=== PATIENT | female | born 1980 | race Hispanic/Latino ===

== ENCOUNTER 2020-06-08 16:32 | Emergency (ER) | payer SELFPAY ==
[2020-06-08 17:49] LABS: Urine Blood 2+ (NEG); Urine Glucose 1+ (NEG); Urine Protein 2+ (NEG); Urine Specific Gravity 1.025 (1.005-1.030)
[2020-06-08 17:58] LABS: Urine Bacteria >50 /HPF (<20); Urine Culture Reflex Order REFLEXED
[2020-06-08 18:08] LABS: Absolute Lymphocytes (CBC) 0.6 K/uL (0.7-4.9); Basophils % 0.4 % (0-1.3); Hematocrit 38.3 % (36.0-45.0); Lymphocytes % 5.8 % (15.3-44.8); MPV 8.2 fL (7.6-11.3); RBC Red Blood Cell Count 4.31 M/uL (3.86-4.86)
[2020-06-08] MEDS ORDERED: MORPHINE 4 MG/ML SYR ONE (18:11)
[2020-06-08] MEDS ORDERED: ONDANSETRON 4 MG/2 ML VIAL ONE (18:12)
[2020-06-08] MEDS ORDERED: NA CHLORIDE 0.9% 1,000 ML ONE (18:12)
[2020-06-08 18:18] LABS: Potassium 3.6 mmol/L (3.5-5.1)
[2020-06-08] MEDS ORDERED: CIPROFLOXACIN HCL 500 MG TAB ONE (18:20)
[2020-06-08 18:36] LABS: Blood Morphology Comment NOT SEEN (NOT SEEN); Platelet Estimate ADEQ; White Blood Cell Scan OK (OK)
--- NOTE | 2020-06-08 18:37 | EDPHYS ---
Physician Documentation [facility] Name: Sarah Powell Age: 39 yrs Sex: Female : 1980 Arrival Date: 06/08/2020 Time: 16:36 Bed 20 Private MD: ED Physician Pierre Romero HPI: 06/08 18:02 This 39 yrs old Female presents to ER via Ambulatory with complaints of Back kb Pain, Pain With Urination. 18:02 The patient presents with urinary symptoms, dysuria. Onset: The symptoms/episode kb began/occurred 1 week(s) ago. Modifying factors: The symptoms are alleviated by nothing, the symptoms are aggravated by urinating. Associated signs and symptoms: Pertinent positives: dysuria, fever. Severity of symptoms: At their worst the symptoms were moderate, in the emergency department the symptoms are unchanged. The patient has not experienced similar symptoms in the past. The patient has not recently seen a physician. Pt reports dysuria for one week. Fever, chills and right flank pain started a few days ago, worse today. 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 - Social history:: Smoking status: Patient denies any tobacco usage or history of. ROS: 18:01 Cardiovascular: Negative for chest pain, palpitations, and edema, Respiratory: Negative kb for shortness of breath, cough, wheezing, and pleuritic chest pain, Abdomen/GI: Negative for abdominal pain, nausea, vomiting, diarrhea, and constipation, MS/Extremity: Negative for injury and deformity, Skin: Negative for injury, rash, and discoloration, Neuro: Negative for headache, weakness, numbness, tingling, and seizure. 18:01 : Positive for flank pain, burning with urination. 18:02 Constitutional: Positive for chills, fever. kb Exam: 18:01 Constitutional: This is a well developed, well nourished patient who is awake, alert, kb and in no acute distress. Head/Face: Normocephalic, atraumatic. Chest/axilla: Normal chest wall appearance and motion. Nontender with no deformity. No lesions are appreciated. Cardiovascular: Regular rate and rhythm with a normal S1 and S2. No gallops, murmurs, or rubs. Normal PMI, no JVD. No pulse deficits. Respiratory: Lungs have equal breath sounds bilaterally, clear to auscultation and percussion. No rales, rhonchi or wheezes noted. No increased work of breathing, no retractions or nasal flaring. Abdomen/GI: Soft, non-tender, with normal bowel sounds. No distension or tympany. No guarding or rebound. No evidence of tenderness throughout. Skin: Warm, dry with normal turgor. Normal color with no rashes, no lesions, and no evidence of cellulitis. MS/ Extremity: Pulses equal, no cyanosis. Neurovascular intact. Full, normal range of motion. Neuro: Awake and alert, GCS 15, oriented to person, place, time, and situation. Cranial nerves II-XII grossly intact. Motor strength 5/5 in all extremities. Sensory grossly intact. Cerebellar exam normal. Normal gait. 18:01 Back: pain, that is moderate, of the right low back, ROM is normal, normal spinal alignment noted. Vital Signs: 16:48 BP 159 / 74; Pulse 122; Resp 18; Temp 98.6(O); Pulse Ox 100% ; Weight 104.33 kg; Height ll1 5 ft. 7 in. (170.18 cm); Pain 9/10; 18:47 BP 143 / 75; Pulse 103; Resp 18; Pulse Ox 98% on R/A; jd3 19:27 BP 133 / 61; Pulse 95; Resp 17 S; Temp 98.6(O); Pulse Ox 99% on R/A; jd3 16:48 Body Mass Index 36.02 (104.33 kg, 170.18 cm) ll1 MDM: 17:25 Patient medically screened. kb 18:01 Data reviewed: vital signs, nurses notes. Data interpreted: Pulse oximetry: on room air kb is 100 %. Interpretation: normal. 18:24 Counseling: I had a detailed discussion with the patient and/or guardian regarding: the kb historical points, exam findings, and any diagnostic results supporting the discharge/admit diagnosis, lab results, the need for outpatient follow up, a family practitioner, to return to the emergency department if symptoms worsen or persist or if there are any questions or concerns that arise at home. 06/08 16:38 Order name: Urine Microscopic Only; Complete Time: 18:00 kb 06/08 17:41 Order name: CBC with Diff; Complete Time: 18:37 kb 06/08 17:41 Order name: Basic Metabolic Panel; Complete Time: 18:22 kb 06/08 17:44 Order name: Urine Dipstick--Ancillary (enter results); Complete Time: 17:52 eb 06/08 17:44 Order name: Urine --Ancillary (enter results); Complete Time: 17:52 eb 06/08 17:59 Order name: Urine Culture EDMS 06/08 16:38 Order name: Urine Test (obtain specimen); Complete Time: 17:43 kb 06/08 16:38 Order name: Urine Dipstick-Ancillary (obtain specimen); Complete Time: 17:43 kb 06/08 17:41 Order name: IV Start; Complete Time: 17:57 kb 06/08 18:36 Order name: CBC Smear Scan; Complete Time: 18:37 EDMS 06/08 18:22 Order name: Vital Signs; Complete Time: 18:47 kb Administered Medications: 18:04 Drug: NS 0.9% 1000 ml Route: IV; Rate: 1000 ml; Site: right antecubital; jd3 19:31 Follow up: Response: No adverse reaction; IV Status: Completed infusion; IV Intake: jd3 1000ml 18:04 Drug: morphine 4 mg Route: IVP; Site: right antecubital; jd3 19:00 Follow up: Response: No adverse reaction; RASS: Alert and Calm (0) jd3 18:04 Drug: Zofran (Ondansetron) 4 mg Route: IVP; Site: right antecubital; jd3 19:00 Follow up: Response: No adverse reaction jd3 18:19 Drug: Cipro 500 mg Route: PO; jd3 19:30 Follow up: Response: No adverse reaction jd3 Disposition: 06/09 17:58 Co-signature as Attending Physician, Pierre JC I agree with the assessment and soo plan of care. Disposition: 06/08/20 18:36 Discharged to Home. Impression: Urinary tract infection, site not specified. - Condition is Stable. - Discharge Instructions: Urinary Tract Infection, Adult, [id number]. - Prescriptions for Cipro 500 mg Oral Tablet - take 1 tablet by ORAL route every 12 hours for 10 days; 20 tablet. - Medication Reconciliation Form, Thank You Letter, Antibiotic Education, Prescription Opioid Use form. - Follow up: Emergency Department; When: As needed; Reason: Worsening of condition. Follow up: Private Physician; When: 2 - 3 days; Reason: Recheck today's complaints, Continuance of care, Re-evaluation by your physician. Signatures: Dispatcher [employer] EDMS Rosanne Alvarez, MILTON-C BEEF PLUCK TRIMMER-Pierre Morse MD MD cha Davies, Jonathon, RN RN jd3 Landen Gray RN RN ll1 Corrections: (The following items were deleted from the chart) 06/08 18:02 18:01 Constitutional: Negative for fever, chills, and weight loss, Cardiovascular: kb Negative for chest pain, palpitations, and edema, Respiratory: Negative for shortness of breath, cough, wheezing, and pleuritic chest pain, Abdomen/GI: Negative for abdominal pain, nausea, vomiting, diarrhea, and constipation, MS/Extremity: Negative for injury and deformity, Skin: Negative for injury, rash, and discoloration, Neuro: Negative for headache, weakness, numbness, tingling, and seizure, kb 19:31 18:36 06/08/2020 18:36 Discharged to Home. Impression: Urinary tract infection, site jd3 not specified. Condition is Stable. Discharge Instructions: Urinary Tract Infection, Adult, [id number]. Prescriptions for Cipro 500 mg Oral Tablet - take 1 tablet by ORAL route every 12 hours for 10 days; 20 tablet. and Forms are Medication Reconciliation Form, Thank You Letter, Antibiotic Education, Prescription Opioid Use. Follow up: Emergency Department; When: As needed; Reason: Worsening of condition. Follow up: Private Physician; When: 2 - 3 days; Reason: Recheck today's complaints, Continuance of care, Re-evaluation by your physician. kb
--- NOTE | 2020-06-08 18:37 | ER ---
Nurse's Notes [facility] Name: Sarah Powell Age: 39 yrs Sex: Female : 1980 Arrival Date: 06/08/2020 Time: 16:36 Bed 20 Private MD: Diagnosis: Urinary tract infection, site not specified Presentation: 06/08 16:48 Chief complaint: Patient states: Dysuria, right lower back pain, nausea, and fatigue ll1 for 1 week. Has fever at home, no thermometer. + chills. Coronavirus screen: Client denies travel out of the [place] in the last 14 days. At this time, the client does not indicate any symptoms associated with coronavirus-19. Ebola Screen: Patient denies travel to an Ebola-affected area in the 21 days before illness onset. Initial Sepsis Screen: Does the patient meet any 2 criteria? HR > 90 bpm. No. Patient's initial sepsis screen is negative. Does the patient have a suspected source of infection? Yes: Dysuria/Frequency/Urgency/UTI. Risk Assessment: Do you want to hurt yourself or someone else? Patient reports no desire to harm self or others. Onset of symptoms was June 01, 2020. 16:48 Method Of Arrival: Ambulatory ll1 16:48 Acuity: JAELYN [address] ASSIST[address]: 19:27 LMP N/A - Irregular menses jd3 Historical: - Allergies: 16:50 PENICILLINS; ll1 16:50 Amoxicillin; ll1 - PMHx: 16:50 Asthma; ll1 - PSHx: 16:50 Tubal ligation; ll1 - Immunization history:: Flu vaccine is not up to date. - Social history:: Smoking status: Patient denies any tobacco usage or history of. Screenin:44 Abuse screen: Denies threats or abuse. Nutritional screening: No deficits noted. jd3 Tuberculosis screening: No symptoms or risk factors identified. Fall Risk Ambulatory Aid- None/Bed Rest/Nurse Assist (0 pts). Gait- Normal/Bed Rest/Wheelchair (0 pts) Mental Status- Oriented to own ability (0 pts). Total Israel Fall Scale indicates No Risk (0-24 pts). Assessment: 17:43 General: Appears in no apparent distress. uncomfortable, Behavior is calm, cooperative, jd3 appropriate for age. Pain: Complains of pain in low back area Quality of pain is described as aching. Neuro: Level of Consciousness is awake, alert, obeys commands, Oriented to person, place, time, situation. Cardiovascular: Capillary refill < 3 seconds Patient's skin is warm and dry. Respiratory: Airway is patent Respiratory effort is even, unlabored, Respiratory pattern is regular, symmetrical. GI: No signs and/or symptoms were reported involving the gastrointestinal system. : Urine is cloudy, Reports burning with urination, urgency. EENT: No signs and/or symptoms were reported regarding the EENT system. Derm: Skin is intact, Skin is dry, Skin is normal, Skin temperature is warm. Musculoskeletal: Circulation, motion, and sensation intact. Range of motion: intact in all extremities. 18:47 Reassessment: Patient appears in no apparent distress at this time. Patient and/or jd3 family updated on plan of care and expected duration. Pain level reassessed. Patient is alert, oriented x 3, equal unlabored respirations, skin warm/dry/pink. awaiting for fluids to infuse prior to discharge. 19:28 Reassessment: Patient appears in no apparent distress at this time. Patient and/or jd3 family updated on plan of care and expected duration. Pain level reassessed. Patient is alert, oriented x 3, equal unlabored respirations, skin warm/dry/pink. Patient states feeling better. Vital Signs: 16:48 BP 159 / 74; Pulse 122; Resp 18; Temp 98.6(O); Pulse Ox 100% ; Weight 104.33 kg; Height ll1 5 ft. 7 in. (170.18 cm); Pain 9/10; 18:47 BP 143 / 75; Pulse 103; Resp 18; Pulse Ox 98% on R/A; jd3 19:27 BP 133 / 61; Pulse 95; Resp 17 S; Temp 98.6(O); Pulse Ox 99% on R/A; jd3 16:48 Body Mass Index 36.02 (104.33 kg, 170.18 cm) ll1 ED Course: 16:36 Patient arrived in ED. mr 16:49 Triage completed. ll1 16:50 Arm band placed on. ll1 16:52 [facility]C [facility] kb 16:52 Pierre Romero MD is Attending Physician. kb 17:37 Ryan Porras, RN is Primary Nurse. jd3 17:44 Patient has correct armband on for positive identification. Bed in low position. Call jd3 light in reach. Side rails up X 1. Adult w/ patient. Pulse ox on. NIBP on. 17:45 Urine Microscopic Only Sent. jd3 17:50 Inserted saline lock: 20 gauge in right forearm, using aseptic technique. Blood jd3 collected. 19:26 No provider procedures requiring assistance completed. IV discontinued, intact, jd3 bleeding controlled, No redness/swelling at site. Pressure dressing applied. Administered Medications: 18:04 Drug: NS 0.9% 1000 ml Route: IV; Rate: 1000 ml; Site: right antecubital; jd3 19:31 Follow up: Response: No adverse reaction; IV Status: Completed infusion; IV Intake: jd3 1000ml 18:04 Drug: morphine 4 mg Route: IVP; Site: right antecubital; jd3 19:00 Follow up: Response: No adverse reaction; RASS: Alert and Calm (0) jd3 18:04 Drug: Zofran (Ondansetron) 4 mg Route: IVP; Site: right antecubital; jd3 19:00 Follow up: Response: No adverse reaction jd3 18:19 Drug: Cipro 500 mg Route: PO; jd3 19:30 Follow up: Response: No adverse reaction jd3 Intake: 19:31 IV: 1000ml; Total: 1000ml. jd3 Outcome: 18:36 Discharge ordered by MD. kb 19:27 Discharged to home ambulatory, with family. jd3 19:27 Condition: stable 19:27 Discharge instructions given to patient, Instructed on discharge instructions, follow up and referral plans. medication usage, Demonstrated understanding of instructions, follow-up care, medications, Prescriptions given X 1. 19:31 Patient left the ED. jd3 Addendum: 06/11/2020 08:46 Addendum: Culture Results: Positive urine culture. No further action required. Bacteria a a5 sensitive to prescribed antibiotic. Signatures: Rosanne Alvarez, TOOL ENGINE LATHE SET UP OPERATOR-C TOOL ENGINE LATHE SET UP OPERATOR-Ckb Katy Glover, Lena, RN RN aa5 Ryan Porras, JUSTA RN jLanden Alba RN RN ll1 Corrections: (The following items were deleted from the chart) 06/08 18:50 18:47 Reassessment: Patient appears in no apparent distress at this time. Patient jd3 and/or family updated on plan of care and expected duration. Pain level reassessed. Patient is alert, oriented x 3, equal unlabored respirations, skin warm/dry/pink. jd3
[2020-06-08 19:48] VITALS: TEMP 98.6
[2020-06-08 19:55] VITALS: BP 133/61; O2SAT 99
== END 2020-06-08 19:31 | disposition home or self-care (01) ==
LOC: ER 16:32
DX: N39.0 Urinary tract infection, site not specified (principal); Z88.0 Allergy status to penicillin; Z88.1 Allergy status to other antibiotic agents
CPT/HCPCS: 36415; 80048; 81003; 81015; 81025; 85025; 87077; 87086; 87088; 87186; 96361; 96374; 96375; 99284; J2405; J7030

== ENCOUNTER 2021-04-22 19:08 | Emergency (ER) | payer SELFPAY | END 2021-04-22 21:09 | disposition left against medical advice (07) | LOC: ER 19:08 | DX: Z02.9 Encounter for administrative examinations, unspecified (principal) ==

== ENCOUNTER 2021-04-23 08:53 | Emergency (ER) | payer SELFPAY ==
--- NOTE | 2021-04-23 09:39 | RAD REPORT ---
EXAM DESCRIPTION: CT - Head Brain Wo Cont - 04/23/2021 9:26 am CLINICAL HISTORY: Headache COMPARISON: None. TECHNIQUE: Computed axial tomography of the head was obtained. IV contrast was not requested. All CT scans are performed using dose optimization technique as appropriate and may include automated exposure control or mA/KV adjustment according to patient size. FINDINGS: An intracranial bleed is not seen . The ventricles are normal in caliber. No extra-axial fluid collection is noted. Fluid within the sinuses/ mastoids is not seen. IMPRESSION: No acute intracranial abnormality is seen. If patient's symptoms persist MRI of the bra in would be recommended.
--- NOTE | 2021-04-23 09:44 | EDPHYS ---
Physician Documentation [facility] Name: Sarah Powell Age: 40 yrs Sex: Female : 1980 Arrival Date: 04/23/2021 Time: 08:54 Bed DX1 Private MD: ED Physician Prashant Guzman HPI: 04/23 09:13 This 40 yrs old Female presents to ER via Ambulatory with complaints of Dental rn Pain, Headache. 09:13 The patient complains of pain to the left ear, left cheek, left bahai and left frontal rn area. The patient describes the headache as aching. Onset: The symptoms/episode began/occurred this morning. Associated signs and symptoms: Pertinent positives: This patient does not have any pertinent positive signs or symptoms associated with a headache. Pertinent negatives: altered mental status, fever, neck stiffness, rash, sinus congestion, sinus tenderness, vision changes, vision loss, vomiting, weakness, vertigo. Severity of symptoms: At its worst the pain was moderate, in the emergency department the pain has improved. The symptoms are alleviated by Warm compress the symptoms are aggravated by nothing. The patient has not experienced similar symptoms in the past. The patient has not recently seen a physician. Patient reports woke up today with dental pain that radiates to left bahai and frontal head. Denies fever. Denies focal neurological problem. Denies trauma. No vision changes or loss. States scared of dentists and has not gone to a dentist.. 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 - Family history:: not pertinent. - Social history:: Smoking status: unknown. - Hospitalizations: : No recent hospitalization is reported. ROS: 09:13 Constitutional: Negative for fever, chills, and weight loss, Eyes: Negative for injury, rn pain, redness, and discharge, ENT: Negative for injury, pain, and discharge, Neck: Negative for injury, pain, and swelling, Cardiovascular: Negative for chest pain, palpitations, and edema, Respiratory: Negative for shortness of breath, cough, wheezing, and pleuritic chest pain, Abdomen/GI: Negative for abdominal pain, nausea, vomiting, diarrhea, and constipation, Back: Negative for injury and pain, MS/Extremity: Negative for injury and deformity, Skin: Negative for injury, rash, and discoloration, Neuro: Negative for weakness, numbness, tingling, and seizure. Exam: 09:13 Constitutional: This is a well developed, well nourished patient who is awake, alert, rn and in no acute distress. Head/Face: Normocephalic, atraumatic. Eyes: Periorbital areas with no swelling, redness, or edema. ENT: No focal intraoral swelling or abscess evident. Isolates pain to the left upper molar region on exam. Neck: Trachea midline, no masses palpated, and no cervical lymphadenopathy. Supple, full range of motion without nuchal rigidity, or vertebral point tenderness. No Meningismus. Skin: Warm, dry with normal turgor. Normal color with no rashes, no lesions, and no evidence of cellulitis. Neuro: Awake and alert, GCS 15, oriented to person, place, time, and situation. Cranial nerves II-XII grossly intact. Motor strength 5/5 in all extremities. Sensory grossly intact. Cerebellar exam normal. Normal gait. Vital Signs: 09:07 BP 156 / 89; Pulse 81; Resp 18; Temp 97.6(O); Pulse Ox 100% on R/A; Weight 104.33 kg; ss Height 5 ft. 7 in. (170.18 cm); Pain 7/10; 09:07 Body Mass Index 36.02 (104.33 kg, 170.18 cm) ss [place] Coma Score: 09:42 Eye Response: spontaneous(4). Verbal Response: oriented(5). Motor Response: obeys rn commands(6). Total: 15. MDM: 09:22 Patient medically screened. rn 09:42 Differential diagnosis: hypertensive headache, migraine, neoplasm, tension headache, rn vasomotor headache. Data reviewed: vital signs, nurses notes, radiologic studies, CT scan, and as a result, I will discharge patient. Counseling: I had a detailed discussion with the patient and/or guardian regarding: the historical points, exam findings, and any diagnostic results supporting the discharge/admit diagnosis, radiology results, the need for outpatient follow up, to return to the emergency department if symptoms worsen or persist or if there are any questions or concerns that arise at home. Response to treatment: the patient's symptoms have mildly improved after treatment, and as a result, I will discharge patient. Special discussion: I discussed with the patient/guardian in detail that at this point there is no indication for admission to the hospital. It is understood, however, that if the symptoms persist or worsen the patient needs to return immediately for re-evaluation. Based on the history and exam findings, there is no indication for further emergent testing or inpatient evaluation. I discussed with the patient/guardian the need to see a dentist for further evaluation of the symptoms. 04/23 09:13 Order name: CT Head Brain wo Cont; Complete Time: 09:42 rn Administered Medications: 09:37 Drug: Ketorolac 30 mg Route: IM; Site: left deltoid; iw 09:45 Follow up: Response: No adverse reaction iw Disposition Summary: 04/23/21 09:44 Discharge Ordered Location: Home rn Problem: new rn Symptoms: have improved rn Condition: Stable rn Diagnosis - Dental caries, unspecified rn - Headache rn Followup: rn - With: Private Physician - When: Upon discharge from the Emergency Department - Reason: Recheck today's complaints, Re-evaluation by your physician Discharge Instructions: - Discharge Summary Sheet rn - Dental Pain rn - General Headache Without Cause rn Forms: - Medication Reconciliation Form rn - Work release form iw - Thank You Letter rn - Antibiotic infusion rn - Prescription Opioid Use rn Prescriptions: - Clindamycin HCl 300 mg Oral Capsule - take 1 capsule by ORAL route every 6 hours for 10 days; 40 capsule; Refills: 0, rn Product Selection Permitted Signatures: Dispatcher [employer] Josselyn Flynn RN RN iw Prashant Guzman MD MD rn Smirch, Shelby, RN RN ss
--- NOTE | 2021-04-23 09:44 | ER ---
Nurse's Notes [facility] Name: Sarah Pwoell Age: 40 yrs Sex: Female : 1980 Arrival Date: 04/23/2021 Time: 08:54 Bed DX1 Private MD: Diagnosis: Dental caries, unspecified;Headache Presentation: 04/23 09:05 Chief complaint: Patient states: Dental pain that radiates towards L side of head. ss Coronavirus screen: Client denies travel out of the [place] in the last 14 days. Ebola Screen: Patient denies exposure to infectious person. Patient denies travel to an Ebola-affected area in the 21 days before illness onset. Initial Sepsis Screen: Does the patient meet any 2 criteria? No. Patient's initial sepsis screen is negative. Does the patient have a suspected source of infection? No. Patient's initial sepsis screen is negative. Risk Assessment: Do you want to hurt yourself or someone else? Patient reports no desire to harm self or others. Onset of symptoms was March 2021. 09:05 Method Of Arrival: Ambulatory 09:05 Acuity: JAELYN 5 ss Triage Assessment: 09:54 Headache History: The patient has had previous headaches and this one is similar to iw previous episodes. General: Appears in no apparent distress. Pain: Pain Pain began Also complains of no other associated symptoms. 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 - Family history:: not pertinent. - Social history:: Smoking status: unknown. - Hospitalizations: : No recent hospitalization is reported. Screenin:38 Abuse screen: Denies threats or abuse. Denies injuries from another. Nutritional iw screening: No deficits noted. Tuberculosis screening: No symptoms or risk factors identified. Fall Risk None identified. Assessment: 09:37 General: Appears in no apparent distress. Behavior is calm, cooperative. Pain: iw Complains of pain in left frontal area and left anglican and left cheek. Neuro: Level of Consciousness is awake, alert, obeys commands, Oriented to person, place, time, situation, Moves all extremities. Full function. Cardiovascular: Patient's skin is warm and dry. Respiratory: Respiratory effort is even, unlabored, Respiratory pattern is regular. Derm: Skin is intact, is healthy with good turgor. Musculoskeletal: Range of motion: intact in all extremities. Vital Signs: 09:07 BP 156 / 89; Pulse 81; Resp 18; Temp 97.6(O); Pulse Ox 100% on R/A; Weight 104.33 kg; ss Height 5 ft. 7 in. (170.18 cm); Pain 7/10; 09:07 Body Mass Index 36.02 (104.33 kg, 170.18 cm) ss Aleks Coma Score: 09:42 Eye Response: spontaneous(4). Verbal Response: oriented(5). Motor Response: obeys rn commands(6). Total: 15. ED Course: 08:54 Patient arrived in ED. ds1 08:57 Prashant Guzman MD is Attending Physician. rn 09:06 Triage completed. ss 09:06 Arm band placed on right wrist. ss 09:26 CT Head Brain wo Cont In Process Unspecified. EDMS 09:37 Josselyn Coe RN is Primary Nurse. iw 09:38 No provider procedures requiring assistance completed. Patient did not have IV access iw during this emergency room visit. 09:54 Patient has correct armband on for positive identification. iw Administered Medications: 09:37 Drug: Ketorolac 30 mg Route: IM; Site: left deltoid; iw 09:45 Follow up: Response: No adverse reaction iw Outcome: 09:44 Discharge ordered by . rn 09:54 Discharged to home ambulatory. iw 09:54 Condition: good 09:54 Discharge instructions given to patient, Instructed on discharge instructions, follow up and referral plans. medication usage, Demonstrated understanding of instructions, follow-up care, medications, Prescriptions given X 1. 09:54 Patient left the ED. iw Signatures: Dispatcher [employer] EDWI Maria M Keys ds1 Josselyn Coe RN RN iw Prashant Guzman MD MD rn Smirch, Shelby, RN RN Corrections: (The following items were deleted from the chart) 09:07 09:05 Chief complaint: Patient states: Dental pain ss ss
[2021-04-23] MEDS ORDERED: KETOROLAC 30 MG/ML INJ ONE (09:57)
[2021-04-23 10:09] VITALS: BP 156/89; TEMP 97.6; O2SAT 100
== END 2021-04-23 09:54 | disposition home or self-care (01) ==
LOC: ER 08:53
DX: K02.9 Dental caries, unspecified (principal); Z88.0 Allergy status to penicillin; Z88.1 Allergy status to other antibiotic agents
CPT/HCPCS: 70450; 96372; 99283

== ENCOUNTER 2021-04-26 09:52 | Emergency (ER) | payer SELFPAY ==
[2021-04-26] MEDS ORDERED: KETOROLAC 30 MG/ML INJ ONE (11:06)
--- NOTE | 2021-04-26 11:11 | ER ---
Nurse's Notes [facility] Name: Sarah Powell Age: 40 yrs Sex: Female : 1980 Arrival Date: 04/26/2021 Time: 10:05 Bed 15 Private MD: Diagnosis: Headache Presentation: 04/26 10:24 Chief complaint: Patient states: Seen in ER for dental pain and headache 2 days ago. Pt ss reports that her tooth is better, but now her L ear and head are still hurting. Pt reports that her daughter's coworker tested positive for covid and she would like to rule it out even though she recently had it in October. Coronavirus screen: Client presents with at least one sign or symptom that may indicate coronavirus-19. Ebola Screen: Patient denies exposure to infectious person. Patient denies travel to an Ebola-affected area in the 21 days before illness onset. Initial Sepsis Screen: Does the patient meet any 2 criteria? No. Patient's initial sepsis screen is negative. Does the patient have a suspected source of infection? No. Patient's initial sepsis screen is negative. Risk Assessment: Do you want to hurt yourself or someone else? Patient reports no desire to harm self or others. Onset of symptoms was April 24, 2021. 10:24 Method Of Arrival: Ambulatory ss 10:24 Acuity: JAELYN 4 ss Triage Assessment: 10:33 Headache History: Denies prior headaches. General: Appears in no apparent distress. aj2 comfortable, well groomed, well nourished, Behavior is calm, cooperative, appropriate for age. Pain: Pain level that patient reports is acceptable is 9 out of 10 on a pain scale. Pain began suddenly, Also complains of no other associated symptoms. 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 - Social history:: Smoking status: Patient denies any tobacco usage or history of. Screenin:19 Abuse screen: Denies threats or abuse. Nutritional screening: No deficits noted. aj2 Tuberculosis screening: No symptoms or risk factors identified. Fall Risk None identified. Assessment: 11:19 General: Appears in no apparent distress. Pain: Pain level that patient reports is aj2 acceptable is 5 out of 10 on a pain scale. Neuro: No deficits noted. Vital Signs: 10:24 BP 159 / 103; Pulse 74; Resp 17; Temp 97.7(TE); Pulse Ox 100% on R/A; Weight 104.33 kg; Height 5 ft. 7 in. (170.18 cm); 10:24 Body Mass Index 36.02 (104.33 kg, 170.18 cm) ED Course: 10:05 Patient arrived in ED. ds1 10:20 Ari Nava PA is PHCP. jr8 10:20 Manoj Piper MD is Attending Physician. jr8 10:26 Triage completed. ss 10:26 Arm band placed on right wrist. 10:33 Talib Shin is Primary Nurse. aj2 11:19 Patient has correct armband on for positive identification. aj2 11:19 No provider procedures requiring assistance completed. Patient did not have IV access aj2 during this emergency room visit. Administered Medications: 10:56 Drug: Ketorolac 30 mg Route: IM; Site: left deltoid; aj2 Outcome: 11:10 Discharge ordered by . jr8 11:19 Discharged to home ambulatory. aj2 11:19 Condition: stable 11:19 Discharge instructions given to patient. 11:25 Patient left the ED. aj2 Signatures: Maria M Keys ds1 Angela Dow, RN RN Ari Nava PA PA jr8 Talib Shin aj2 Corrections: (The following items were deleted from the chart) 11:05 10:56 CORONAVIRUS+MR.LAB.CALE drawn and sent. aj2 EDMS
--- NOTE | 2021-04-26 11:11 | EDPHYS ---
Physician Documentation [facility] Name: Sarah Powell Age: 40 yrs Sex: Female : 1980 Arrival Date: 04/26/2021 Time: 10:05 Bed 15 Private MD: ED Physician Manoj Piper HPI: 04/26 11:07 This 40 yrs old Female presents to ER via Ambulatory with complaints of jr8 Headache. 11:07 Onset: The symptoms/episode began/occurred gradually, 2 day(s) ago. Associated signs jr8 and symptoms: The patient has no apparent associated signs or symptoms. Severity of symptoms: At its worst the pain was moderate, in the emergency department the pain is unchanged. The patient has not experienced similar symptoms in the past. The patient has been recently seen by a physician:. This is a 40-year-old female that presented to the emergency room for follow-up for continued headache. Was put on antibiotics for dental infection and feels that that part is getting better but still continues to have a headache. Patient had a CT scan of her head without any acute findings. Patient stated that she was worried because her daughter was around Covid patient and now she started to have headache and her significant other started to have a headache as well. Wanted to rule out coronavirus.. 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 - Social history:: Smoking status: Patient denies any tobacco usage or history of. ROS: 11:07 Eyes: Negative for injury, pain, redness, and discharge, ENT: Negative for injury, jr8 pain, and discharge, Neck: Negative for injury, pain, and swelling, Cardiovascular: Negative for chest pain, palpitations, and edema, Respiratory: Negative for shortness of breath, cough, wheezing, and pleuritic chest pain, Abdomen/GI: Negative for abdominal pain, nausea, vomiting, diarrhea, and constipation, Back: Negative for injury and pain, MS/Extremity: Negative for injury and deformity, Skin: Negative for injury, rash, and discoloration. 11:07 Neuro: Positive for headache. Exam: 11:07 Constitutional: This is a well developed, well nourished patient who is awake, alert, jr8 and in no acute distress. Eyes: Pupils equal round and reactive to light, extra-ocular motions intact. Lids and lashes normal. Conjunctiva and sclera are non-icteric and not injected. Cornea within normal limits. Periorbital areas with no swelling, redness, or edema. ENT: Nares patent. No nasal discharge, no septal abnormalities noted. Tympanic membranes are normal and external auditory canals are clear. Oropharynx with no redness, swelling, or masses, exudates, or evidence of obstruction, uvula midline. Mucous membranes moist. Neck: Trachea midline, no thyromegaly or masses palpated, and no cervical lymphadenopathy. Supple, full range of motion without nuchal rigidity, or vertebral point tenderness. No Meningismus. Cardiovascular: Regular rate and rhythm with a normal S1 and S2. No gallops, murmurs, or rubs. Normal PMI, no JVD. No pulse deficits. Respiratory: Lungs have equal breath sounds bilaterally, clear to auscultation and percussion. No rales, rhonchi or wheezes noted. No increased work of breathing, no retractions or nasal flaring. Skin: Warm, dry with normal turgor. Normal color with no rashes, no lesions, and no evidence of cellulitis. MS/ Extremity: Pulses equal, no cyanosis. Neurovascular intact. Full, normal range of motion. Neuro: Awake and alert, GCS 15, oriented to person, place, time, and situation. Cranial nerves II-XII grossly intact. Motor strength 5/5 in all extremities. Sensory grossly intact. Cerebellar exam normal. Normal gait. Vital Signs: 10:24 BP 159 / 103; Pulse 74; Resp 17; Temp 97.7(TE); Pulse Ox 100% on R/A; Weight 104.33 kg; ss Height 5 ft. 7 in. (170.18 cm); 10:24 Body Mass Index 36.02 (104.33 kg, 170.18 cm) ss MDM: 10:27 Patient medically screened. [facility] 11:07 Data reviewed: vital signs, nurses notes, lab test result(s), and as a result, I will [facility] discharge patient. Data interpreted: Pulse oximetry: on room air is 100 %. Interpretation: normal. Counseling: I had a detailed discussion with the patient and/or guardian regarding: the historical points, exam findings, and any diagnostic results supporting the discharge/admit diagnosis, lab results, radiology results, the need for outpatient follow up, a dentist, to return to the emergency department if symptoms worsen or persist or if there are any questions or concerns that arise at home. Administered Medications: 10:56 Drug: Ketorolac 30 mg Route: IM; Site: left deltoid; aj2 Disposition Summary: 04/26/21 11:10 Discharge Ordered Location: Home jr8 Problem: new jr8 Symptoms: have improved jr8 Condition: Stable jr8 Diagnosis - Headache jr8 Followup: jr8 - With: Private Physician - When: 2 - 3 days - Reason: Recheck today's complaints, Continuance of care, Re-evaluation by your physician Discharge Instructions: - Discharge Summary Sheet jr8 - General Headache Without Cause jr8 Forms: - Medication Reconciliation Form jr8 - Thank You Letter jr8 - Antibiotic Education jr8 - Prescription Opioid Use jr8 - Work release form eb Addendum: 04/29/2021 20:32 Co-signature as Attending Physician, Manoj Piper MD. m a2 Signatures: Dispatcher [employer] Angela Sidhu RN RN ss Ari Nava PA PA jr8 Manoj Piper MD MD ma2 Talib Shin aj2 Corrections: (The following items were deleted from the chart) 04/26 11:05 10:38 CORONAVIRUS+BRZ ordered. EDMS EDMS
[2021-04-26 11:37] VITALS: BP 159/103; TEMP 97.7; O2SAT 100
== END 2021-04-26 11:25 | disposition home or self-care (01) ==
LOC: ER 09:52
DX: R51.9 Headache, unspecified (principal); Z20.822 Contact with and (suspected) exposure to COVID-19; Z88.0 Allergy status to penicillin; Z88.1 Allergy status to other antibiotic agents
CPT/HCPCS: 96372; 99283; U0003